=== PATIENT | male | born 1950 | race Caucasian/White ===

== ENCOUNTER 2020-05-01 11:45 | Day surgery (SDC) | payer OTHER ==
[~2020-05-01] VITALS: Ht 170.2 cm; Wt 75.0 kg
[~2020-05-01 11:45] MED LIST: HYDR1TAB94 PO
--- NOTE | 2020-05-01 12:11 | NUR ---
05/01/20 1211 Jessenia Palm BLOOD DRAWN FOR PRP AND DELIVERED TO OR.
--- NOTE | 2020-05-01 15:46 | NUR ---
05/01/20 1546 Shirley Arenas PT RIDE IS HIS EMPLOYEE. PT. TOLD ME THAT SHE IS DRIVING HIM TO HIS OFFICE SO THAT HE CAN [employer] P[employer] SYMBOL STAMPER HIS CAR AND DRIVE HIMSELF HOME. EDUCATED THAT DOING SO WOULD BE A DUII AND STRONGLY DISCOURAGED HIM FROM DOING THAT. ALSO INFORMED HIS RIDE YANN THAT SHE SHOULD DRIVE HIM HOME RATHER THAN THE OFFICE. SHE STATED SHE WOULD ENCOURAGE HIM TO LET HER DO THAT. DISCHARGE INSTRUCTIONS GIVEN REGARDING POLAR PACK, USE OF CRUTCHES, KEEPING DRESSING DRY AND INTACT FOR 4-5 DAYS. PT. STATES UNDERSTANDS.
== END 2020-05-01 15:38 | disposition home or self-care (01) ==
LOC: ORSCSDS 11:45
PROVIDERS: Orthopaedic Surgery
PROC: 0SBD4ZZ Excision of Left Knee Joint, Percutaneous Endoscopic Approach (ICD-10-PCS; principal; 2020-05-01 12:55)
DX: M23.207 Derangement of unspecified meniscus due to old tear or injury, left knee (principal); M65.862 Other synovitis and tenosynovitis, left lower leg; Z87.891 Personal history of nicotine dependence
CPT/HCPCS: J0171; J0690; J1100; J1885; J2405; J2704; J2795; J3010; J7120